=== PATIENT | female | born 1960 | race Caucasian/White ===

== ENCOUNTER 2019-03-05 08:57 | Inpatient (IN) | payer OTHER, SELFPAY ==
[2019-02-22 08:44] VITALS: BMI 29.9
[2019-03-05] VITALS (21 sets, daily range): BP systolic 81–125; BP diastolic 37–68; PULSE 60–79; RESP 13–19; TEMP 35.9–36.9; O2SAT 92–100; BMI 29.9
--- NOTE | 2019-03-05 09:13 | DI.RAD.S_ITS ---
PROCEDURE: XR KNEE RT 1TO2V INDICATIONS: Post operative total right knee TECHNIQUE: 2 view(s) of the knee acquired. COMPARISON: [facility], CR, XR KNEE STANDING BILATERAL, 09/26/2018, 8:19. [facility], CR, XR KNEE 3 VIEWS RIGHT, 09/19/2018, 17:30. FINDINGS: Bones: Patient is status post knee joint arthroplasty. Hardware components are in expected positions. Visualized bony structures are intact. Soft tissues: Overlying postoperative changes are noted. IMPRESSION: Right kidney prosthesis in anatomic alignment. Dictated by: Dylan Lauren M.D. on 03/05/2019 at 17:18 Approved by: Dylan Lauren M.D. on 03/05/2019 at 17:18
[2019-03-05] MEDS: CELECOXIB 200 MG CAPSULE PO (09:40)
[2019-03-05] MEDS: PREGABALIN 75 MG CAPSULE PO (09:40)
[2019-03-05] MEDS: ACETAMINOPHEN 325 MG TABLET 975 MG PO (09:40)
--- NOTE | 2019-03-05 11:19 | PM.PREOP ---
Pre-operative Note Interval Note History & Physical reviewed/Exam performed by Physician: Yes Changes to H&P: No
[2019-03-05] MEDS: CEFAZOLIN 2 GM/100 ML FROZ.PIGGY IV (12:00)
[2019-03-05] MEDS: TRANEXAMIC ACID 1,000 MG VIAL 1000 MG INJ ×2 (12:20→13:19)
[2019-03-05] MEDS: BUPIVACAINE 0.25% W/ EPI (PF) 10 ML VIAL 60 ML INJ (12:31)
[2019-03-05] MEDS: BUPIVACAINE LIPOSOME 266 MG/20 ML VIAL INJ (12:32)
[2019-03-05] MEDS: MORPHINE 4 MG/ML INJ INJ (12:33)
--- NOTE | 2019-03-05 12:47 | SUR.OPER ---
Supine on padded OR bed. Pillow under head, arms secured on padded armboards <90 degree abduction. Safety belt across torso. Non-operative leg secured with tape over blanket over lower leg. Operative leg secured in DeMayo positioner. Foam padded brace at thigh of operative leg.
[2019-03-05] MEDS: LACTATED RINGERS 1,000 ML 42 ML IV (13:56)
--- NOTE | 2019-03-05 13:59 | P.OP_ITS ---
Operative Date/Time/Diagnoses Date of procedure: 03/05/19 Time of procedure: 13:25 Pre-op diagnosis: Right knee osteoarthritis Post-op diagnosis: same Procedure & Clinicians Procedure: Right total knee Same procedure as scheduled: Yes Indications: The patient has had progressively worsening right knee pain with radiographic changes consistent with arthritis. Non-operative management has failed and the patient has requested total knee replacement. The risks, benefits and alternatives to surgery were discussed with the patient prior to proceeding. Risks discussed included, but were not limited to, failure to relieve pain, stiffness, infection, nerve damage, deep venous thrombosis, pulmonary embolism, stroke, coma, heart attack, permanent paralysis and , as well as the potential need for eventual revision of the prosthetic. Surgeon: Stanley Macias Dissolver Operator: Rufina Weber Click Yes if Unassisted: No Anesthesia Type: Spinal, Sedation and Local Operative Notes Findings: Severe medial and moderate patellofemoral osteoarthritis Closure Type: primary Specimen(s): none sent Prosthetic devices, grafts, tissues, transplants, or devices: Implants used in this procedure were manufactured by the [employer] and included the BCS II Journey total knee replacement with a size 4 right Oxinium femur, a size 3 right non porous tibial base plate with a 9 mm cross-linked polyethylene tibial insert and a 29 mm oval Laurie II patella. Applied: implant(s) Estimated Blood Loss (mL): 25 Blood products transfused: none Tourniquet time (min): 54 Procedure in detail: The patient was seen in the pre-operative area, where the patient identified the right knee as the operative site and this was marked with my initials. The patient received pre-operative antibiotics, and was taken to the operating room and placed on the operative table in the supine position. After satisfactory anesthesia, a grey stock recorder out was performed. The right leg was encircled with a tourniquet about the proximal thigh, and the leg was prepared from the toes to the tourniquet with ChloroPrep in the usual fashion and draped through sterile drapes. The leg was elevated and exsanguinated with Eschmark bandage and the tourniquet inflated to 250 mmHg pressure. The knee was approached through an approximately 18 cm incision centered over the patella and carried into the knee through a medial parapatellar arthrotomy. The anterior osteophytes and soft tissues were removed. The rotational landmarks of Crowley's line and the transepicondylar axis were marked on the femur with electrocautery, and intramedullary guide holes for the femur and tibia were created. The distal femoral cut was made in 6 degrees of valgus using the i ntramedullary guide at the primary cut setting. The proximal tibial cut was then made using the intramedullary guide, taking 9 mm of bone off the less involved side. The extension gap was checked and the rotation of the femoral component confirmed with the gap balancing system. The anterior, posterior and chamfer cuts were then made. The posterior osteophytes and soft tissues were then removed. The posterior capsule was injected with part of a mixture of 60 ml 0.25% Marcaine mixed with 20 ml Exparel and 4 mg of morphine for post-operative pain control. The remainder of this mixture was injected into the capsule and subcutaneous tissues during cement curing. The tibia was prepared with the rotation set by an extra medullary guide. Trial tibial and femoral components were then placed and the intercondylar notch cut through the femoral trial. Range of motion was 0-135 degrees, with good stability throughout the range. The patella was then cut to accommodate the patellar prosthetic. There was no need for a lateral release. The trials were then removed, and the femoral hole plugged with a bone plug. The bone was prepared with pulsatile lavage, and dried with a sponge. Cement was applied and the final prosthetics placed. Excess cement was removed during and after cement curing. After confirming there was no extruded cement posteriorly, the final tibial insert was placed. The knee was copiously irrigated and the tourniquet deflated. Hemostasis was obtained. The capsule was closed with interrupted # 2 polyester suture. The subcutaneous layer was closed with 3-0 Vicryl, and the skin with a running 3-0 V-Lock suture and SteriStrips. An Aquacel Ag dressing was applied and the patient was taken to recovery having tolerated the procedure well. Complications: none Post-operative Condition: stable Disposition: PACU Plan for aftercare: The patient will be maintained on a standard total knee replacement protocol with weight bearing as tolerated. The patient will receive aspirin and sequential compression devices for DVT prophylaxis. The patient will be discharged home when safe for the home environment.
--- NOTE | 2019-03-05 14:14 | SUR.PHASEI ---
Patient with Bp of 86/37 on arrival to PACU. Anesthesiology aware. IV fluids infusing without difficulty. Patient asymptomatic and remains supine in bed.
--- NOTE | 2019-03-05 14:35 | SUR.PHASEI ---
Ice chips given to patient.
--- NOTE | 2019-03-05 14:58 | SUR.PHASEI ---
1450 attempted to call report to receiving inpatient nurse. Nurse unable to take report at this time.
--- NOTE | 2019-03-05 15:04 | SUR.PHASEI ---
Patient continues to deny pain. Warm blanket provided. GCS 15. Resting comfortably.
[2019-03-05] MEDS: LACTATED RINGERS 1,000 ML 125 ML IV ×2 (15:30→23:24)
[2019-03-05] MEDS: ACETAMINOPHEN 325 MG TABLET 650 MG PO ×2 (16:12→20:37)
--- NOTE | 2019-03-05 16:40 | PT-IP ANOTE ---
PT orders received and chart reviewed. This therapist contacted the patient to initiate evaluation, but she was unable to move or feel her knee and toes, not yet able to safely participate with PT. Will attempt to see this patient as soon as possible morning of 03/06/19).
[2019-03-05] MEDS: METFORMIN HCL 500 MG TABLET 1000 MG PO (17:05)
[2019-03-05] MEDS: INSULIN ASPART 100 UNIT/ML INSULN PEN SUBCUT ×2 (17:13→20:32)
[2019-03-05] MEDS: LISINOPRIL 10 MG TABLET PO (18:19)
--- NOTE | 2019-03-05 18:43 | PC.NURSE ---
A&OX3. 099%RA. pt denied pain. dressing cdi. pt starting to feel sensation to her R.leg. able to lift and wiggle her toes. pt able to void 250cc. she tolerated her dinner. VSS. oriented pt to the room. call light in reach. bed alarm active.
[2019-03-05] MEDS: OXYCODONE IR 10 MG TABLET PO ×2 (19:37→22:41)
[2019-03-05] MEDS: ASPIRIN EC 81 MG TABLET PO (20:37)
[2019-03-05] MEDS: DOCUSATE 100 MG CAPSULE PO (20:37)
[2019-03-06] MEDS: hydrOXYzine pamoate 25 MG CAPSULE PO ×2 (00:31→21:10)
[2019-03-06] MEDS: IBUPROFEN 600 MG TABLET PO ×2 (00:31→21:10)
[2019-03-06] MEDS: OXYCODONE IR 10 MG TABLET PO ×6 (01:58→23:50)
[2019-03-06 05:33] VITALS: BP 100/50; PULSE 55; RESP 18; TEMP 36.7; O2SAT 99
[2019-03-06 05:48] LABS: Hematocrit 27.4 % (36-46); Hemoglobin 9.6 g/dL (12.0-16.0)
[2019-03-06 06:15] VITALS: BP 101/54
[2019-03-06 07:40] VITALS: BP 98/50; PULSE 49; RESP 16; TEMP 36.6; O2SAT 100
[2019-03-06] MEDS: METFORMIN HCL 500 MG TABLET 1000 MG PO ×2 (08:06→16:55)
[2019-03-06] MEDS: INSULIN ASPART 100 UNIT/ML INSULN PEN SUBCUT ×3 (08:06→16:54)
[2019-03-06] MEDS: DOCUSATE 100 MG CAPSULE PO ×2 (08:06→21:10)
[2019-03-06] MEDS: ASPIRIN EC 81 MG TABLET PO ×2 (08:07→21:10)
[2019-03-06] MEDS: ACETAMINOPHEN 325 MG TABLET 650 MG PO ×3 (08:07→21:10)
[2019-03-06] MEDS: SODIUM CHLORIDE 0.9% FLUSH 10 ML IV ×2 (08:09→21:12)
[2019-03-06] MEDS: ONDANSETRON 4 MG ODT PO (10:22)
--- NOTE | 2019-03-06 10:22 | PM.PNPO.1 ---
Subjective Subjective Date Patient Seen: 03/06/19 Time Patient Seen: 10:23 Interval history: The patient reports mild nausea and some lightheadedness. Pain control has been satisfactory. Exam Vital Signs (past 8 hours): - 03/06/19 05:33 03/06/19 06:15 03/06/19 07:40 Temperature 98.1 F 97.8 F Pulse Rate 55 L 49 L Respiratory Rate 18 16 Blood Pressure 100/50 L 101/54 L 98/50 L Pulse Oximetry 99 100 Oxygen Delivery Method Room Air Oxygen Flow Rate 0 Narrative Exam Narrative: Right knee wound is dressed with no drainage on the bandage. Calf is soft. Light touch and motion are intact in the right lower extremity. Objective Labs Result Diagrams: 03/06/19 05:30 Labs: Laboratory Results - last 24 hr 03/06/19 05:30 Hgb 9.6 L Hct 27.4 L Assessment & Plan Post-op Postoperative Procedures: Procedures Operation Date: 03/05/19 11:15 Actual Procedures Side Surgeon p Total Knee Arthroplasty Right Stanley Macias MD Postoperative day: 1 Postoperative status: doing well and anemia Postoperative status narrative: The patient is stable postoperative day 1. She has a mild post hemorrhagic anemia and some mild postoperative nausea. She has some mild hypotension and some lightheadedness but is taking oral fluid. Postoperative plan: routine post-op care, ambulate and advance diet Postoperative plan narrative: We will provide supportive care with adequate fluid intake and encourage slow increase in p.o. solid food as well. She will have physical therapy today. She has a disabled as a caregiver and will need to be fairly independent before discharge. I do not feel it is appropriate or safe to discharge her today. She may be ready for discharge tomorrow. Time Spent With Patient Time with patient: less than 15 minutes
--- NOTE | 2019-03-06 10:49 | PT.IPTN ---
Current Diagnoses Unilateral primary osteoarthritis, right knee (03/05/19) Surgery Performed Operation Date: 03/05/19 11:15 Actual Procedures p Total Knee Arthroplasty(Right) - Stanely Macias MD Physical Therapy Treatment Note M2 PT-IP Current Condition Start: 03/05/19 16:34 Freq: NEEDED Status: Active Protocol: Document 03/06/19 08:51 MB (Rec: 03/06/19 10:49 MB [id number]) Physical Therapy Current Condition Current Condition Evaluation Date 03/06/19 Treatment Diagnosis Decreased mobility, ROM and strength s/p right TKR Weight Bearing Status Weight Bearing Status Weight Bear as Tolerated M3 PT-IP Subjective Start: 03/05/19 16:34 Freq: NEEDED Status: Active Protocol: Document 03/06/19 08:51 MB (Rec: 03/06/19 10:49 MB [id number]) Subjective Physical Therapy Visit Type Type Initial Evaluation Visit Start Time 08:51 Visit Stop Time 09:17 Total Visit Minutes 26 Physical Therapy Visit Comments Patient Goals To go home Therapy Pain Assessment Pain When Pain Assessed During Mobility Pain Present Pain Present Pain Reported Location Right Knee Intensity 4 Scale Used Numeric (1 - 10) Pain Management Techniques Re-positioning M4 PT-IP Mobility and Gait Start: 03/05/19 16:34 Freq: NEEDED Status: Active Protocol: Document 03/06/19 08:51 MB (Rec: 03/06/19 10:49 MB [id number]) PT-Bed Mobility Assessment Supine to Sit Supine to Sit Minimal Assistance Sit to Supine Sit to Supine Minimal Assistance Scooting Scooting to Edge of Bed Minimal Assistance Scooting Up and Down in Bed Standby Assistance PT-Transfer Assessment Sit to and From Stand Sit to and from Stand Contact Guard Assistance Equipment Transfer Assistive Device Front Wheeled Walker Comments Mobility Comments Pt requires asst to manage right LE to get in and OOB. She is unable to use her UEs or left foot to help move her right leg. Gait belt unavailable to help with moving leg and PT communicates with nsg about need for gait belt in the room. Pt reports light-headedness upon sitting up and boyfriend, Mario, states that her BP has been low. BP sitting EOB in LUE: 118/53, 51 Cues to push up from the bed and commode and to reach back for them to move from sit<-> stand rather than reaching for walker Gait Assessment Gait Gait Assistance Required: Minimum Assistance Distance (Feet) 20 Assistive Devices Assistive Device 4 Wheeled Walker Gait Deviations General Gait Pattern Antalgic,Decreased Stride Length,Decreased Feet Clearance,Flexed Trunk,Step-to Gait Comments Gait Comments Pt gait trains 20'x1 and 5' x3 . 20' gait with her rollator and 5' gait trials with 2WRW in the room. She requires min A to improve safety and move walker, she presents with step -to gait pattern, decreased heel touch and keeps WB on her right toes. Pt on BR commode on PT arrival and she is able to perform hygiene with I. She asks to return to commode after PT and boyfriend nearby and PT communicates with nsg. PT-Balance Assessment Sitting Balance and Reactions Static Sitting Balance Ability Good Dynamic Sitting Balance Ability Good Standing Balance and Reactions Static Standing Balance Ability Fair Dynamic Standing Balance Ability Fair Device Used RW or rollator M5 PT-IP Objective Assessments Start: 03/05/19 16:34 Freq: NEEDED Status: Active Protocol: Document 03/06/19 08:51 MB (Rec: 03/06/19 10:49 MB [id number]) Orientation Orientation/Cognition Level of Alertness Alert Orientation Name,Age,Birthday,Month,Date, Year,Place,Situation Language Function Ability No Deficits Noted Safety Awareness Understands Safety Issues Gross Range of Motion Upper Extremity ROM Assessment Within Functional Limits Lower Extremity ROM Assessment Right Impaired Impairments AROM right knee in supine: 5- 20 deg and pt states that she cannot push her ROM any further Strength Upper Extremity Strength Assessment Within Functional Limits Lower Extremity Strength Assessment Right Impaired Hip NT s/p surgery Knee NT s/p surgery Ankle Ankle DF and great toe extension 5/5 Sensation Assessment Sensation Gross Sensation WNL M6 PT-IP Treatment Start: 03/05/19 16:34 Freq: NEEDED Status: Active Protocol: Document 03/06/19 08:51 MB (Rec: 03/06/19 10:49 MB [id number]) Physical Therapy Treatment Exercises Exercises Ankle Pumps,Gluteal Sets,Quad Sets,Heel Slides Knee ROM Measurement 5-20 deg Education Education Provided Weight Bearing Status,Post-Op Packet,Safety M7 PT-IP Assessment and Plan Start: 03/05/19 16:34 Freq: NEEDED Status: Active Protocol: Document 03/06/19 08:51 MB (Rec: 03/06/19 10:49 MB [id number]) PT Summary Assessment and Plan Potential Rehabilitation Potential Good Summary Impairments Pain,ROM,Strength,Balance,Bed Mobility,Transfers,Gait, Activity Tolerance Assessment Summary Pt is a 58 y/o female presenting with decreased right knee ROM and strength, R knee pain and decreased functional mobility and gait after right TKR last date. She has support from her boyfriend at home and has a rollator for use. She would like to use rollator at home rather than 2WRW. Boyfriend reports she has had low BP and PT checks it once pt reports dizziness upon sitting EOB and it is WNLs but could be dropping. Pt and boyfriend do not communicate BP issues until after mobility. She will benefit from PT and 24 hour asst at d/c. Ongoing PT in the acute setting to improve range, mobility and gait. Goals Bed Mobility Goal Independent Transfer Goal Independent,Front Wheeled Walker Gait Goal Independent,Front Wheel Walker Gait Distance 100 Other Goals Pt will present with improved active right knee ROM to at least 90 deg flexion. Pt will perform HEP with I to improve right knee ROM and strength. Days to Meet Goals 2 Frequency of Treatment Frequency Of Treatment Twice a Day Treatment Plan Physical Therapy Treatment Plan Bed Mobility Training,Transfer Training,Gait Training, Therapeutic Exercise,Balance Retraining,Post Op Education, Discharge Planning,Hot or Cold Pack Recommendations To Nursing Amount of Assist Needed 1 Person Assist Discharge Recommendations PT Discharge Recommendations Home with 26/09 Assist, Outpatient PT
[2019-03-06 11:58] VITALS: BP 93/53; PULSE 54; RESP 16; TEMP 36.4; O2SAT 99
--- NOTE | 2019-03-06 12:27 | CM.IDA ---
Discharge Planning/Care Management CM Discharge Assessment Start: 03/06/19 12:16 Freq: Status: Active Protocol: Document 03/06/19 12:16 SHREYAS (Rec: 03/06/19 12:26 SHREYAS [id number]) Discharge Planning Assessment Assigned Supervisor Front CARLITOS Almaraz DPOA/Assigned Designee Name Mario Wright, partner Contact Information [phone] Advance Directives? No History Provided By Patient,Significant Other Prior Living Arrangements House Household Members significant other Type of transporation used prior to Drives own vehicle admit Independent with ADL's Yes Is patient alert and oriented? Yes Barriers to Discharge No Comment Pt is POD 1 from right knee surgery w/ Dr Macias. PCP: Anastasia Astudillo Payer: [employer] Met w/pt and SO max at bedside this morning,explained role. Pt plans to DC home w/SO to assist as needed w/outpt PT f/ u. Pt states she is not feeling great this morning, nauseous and in pain but remains hopeful she will go home later today or tomorrow. No barriers identified today to safe return home as expected. PT recommending home . CARLITOS Escoto Discharge Plan Home Transportation Arrangement Family Referrals Initiated None needed Whiteboard Updated in Patient Room with Yes name and ext. # of Supervisor Front Review Status In Process
--- NOTE | 2019-03-06 12:52 | PC.NURSE ---
Pt had some issues with nausea earlier this shift. She did take oxycodone with only a couple bites of chips this am. Given zofran later and helpful. Pt eating lunch now, ate almost half of her sandwich and then given another 10mg of oxycodone. She seems to be feeling better now. Pt has an aquacel dressing to her r.knee that is cdi, She has full sensation to her r.extremity and is a one person assist with fww. at bedside and helpful.. Pt is lying in bed and eating. She is diabetic and her morning bs was 141. Given coverage.
--- NOTE | 2019-03-06 15:40 | PT.IPTN ---
Current Diagnoses Unilateral primary osteoarthritis, right knee (03/05/19) Surgery Performed Operation Date: 03/05/19 11:15 Actual Procedures p Total Knee Arthroplasty(Right) - Stanley Macias MD Physical Therapy Treatment Note M2 PT-IP Current Condition Start: 03/05/19 16:34 Freq: NEEDED Status: Active Protocol: Document 03/06/19 08:51 MB (Rec: 03/06/19 10:49 MB [id number]) Physical Therapy Current Condition Current Condition Evaluation Date 03/06/19 Treatment Diagnosis Decreased mobility, ROM and strength s/p right TKR Weight Bearing Status Weight Bearing Status Weight Bear as Tolerated M3 PT-IP Subjective Start: 03/05/19 16:34 Freq: NEEDED Status: Active Protocol: Document 03/06/19 14:55 SP (Rec: 03/06/19 16:18 SP [id number]) Subjective Physical Therapy Visit Type Type Treatment Note Visit Start Time 14:55 Visit Stop Time 15:40 Total Visit Minutes 45 Physical Therapy Visit Comments Patient Comments Pt willing to work with PT. Patient Goals To go home with assistance of her boyfriend, Mario. Therapy Pain Assessment Pain When Pain Assessed During Mobility Pain Present Pain Present Pain Reported Location Right Knee Intensity 4 Scale Used Numeric (1 - 10) Pain Management Techniques Apply Cold,Re-positioning, Timing of Activity with Medications M4 PT-IP Mobility and Gait Start: 03/05/19 16:34 Freq: NEEDED Status: Active Protocol: Document 03/06/19 14:55 SP (Rec: 03/06/19 16:18 SP [id number]) PT-Bed Mobility Assessment Sit to Supine Sit to Supine Contact Guard Assistance Scooting Scooting Up and Down in Bed Standby Assistance PT-Transfer Assessment Sit to and From Stand Sit to and from Stand Standby Assistance,Contact Guard Assistance,Use of Upper Extremities Equipment Transfer Assistive Device Front Wheeled Walker Orthotic/Prosthetic Devices or Brace: No Transfers Transfer Destination Bed,Toilet Transfer Technique pt ambulated with FWW, 4WW Comments Mobility Comments Pt was up in chair when arrived. ENROLLMENT MANAGER educated Mario lopez/ christina gait belt for safety durign mobility with proper technique. Pt was able to complete sit <> stand with cuing for hand placement to push up from chair and bathroom hand rails and reaching back before sitting from chair arms and reaching back for rail and bed CGA cues with use of 4WW and support provided by therapist initially then Max, her boyfriend during caregiver training. Did provide education on importance of brake management pre/post standing for safety with good follow through. Pt was able to perform self hygiene durign toileting. Pt was able to complete sitting to supine with LLE supporting operative RLE into bed and center herself away from EOB for safety. Pt was laying in bed wtih all needs within reach and Max in room when left. Gait Assessment Gait Gait Assistance Required: Contact Guard Assist Distance (Feet) 80 Able to Maintain Weight Bearing Status Yes During Gait Assistive Devices Assistive Device 4 Wheeled Walker Gait Deviations General Gait Pattern Antalgic,Decreased Stride Length,Decreased Feet Clearance,Flexed Trunk,Step-to Gait Factors Limiting Gait Function Factors Limiting Gait Function Decreased Activity Tolerance, Decreased Strength,Limited Range of Motion,Pain,Poor Balance Comments Gait Comments Pt was able to ambulate chair to toilet 7 ft using FWW CGA, bathroom to hallway and back to R side of bed approx 80 ft (side gets on at home). Pt used FWW initially then 4WW with good brake mgt demonstrating step to gait patterning, difficult step over step at this time. Cued for R knee flexion and heel toe gait to improved ROM and normal gait phases for ambulation. Pt was able to improve distance this treatment. Stair Climbing Assessment Comments Stair Climbing Comments Did not assess, does not have stairs at home. PT-Balance Assessment Sitting Balance and Reactions Static Sitting Balance Ability Good Dynamic Sitting Balance Ability Good Standing Balance and Reactions Static Standing Balance Ability Fair Dynamic Standing Balance Ability Fair Device Used RW or rollator M5 PT-IP Objective Assessments Start: 03/05/19 16:34 Freq: NEEDED Status: Active Protocol: Document 03/06/19 08:51 MB (Rec: 03/06/19 10:49 MB [id number]) Orientation Orientation/Cognition Level of Alertness Alert Orientation Name,Age,Birthday,Month,Date, Year,Place,Situation Language Function Ability No Deficits Noted Safety Awareness Understands Safety Issues Gross Range of Motion Upper Extremity ROM Assessment Within Functional Limits Lower Extremity ROM Assessment Right Impaired Impairments AROM right knee in supine: 5- 20 deg and pt states that she cannot push her ROM any further Strength Upper Extremity Strength Assessment Within Functional Limits Lower Extremity Strength Assessment Right Impaired Hip NT s/p surgery Knee NT s/p surgery Ankle Ankle DF and great toe extension 5/5 Sensation Assessment Sensation Gross Sensation WNL M6 PT-IP Treatment Start: 03/05/19 16:34 Freq: NEEDED Status: Active Protocol: Document 03/06/19 14:55 SP (Rec: 03/06/19 16:18 SP [id number]) Physical Therapy Treatment Exercises Exercises Ankle Pumps,Gluteal Sets,Quad Sets,Heel Slides Knee ROM Measurement 4-90 deg Education Education Provided Weight Bearing Status,Post-Op Packet,Safety M7 PT-IP Assessment and Plan Start: 03/05/19 16:34 Freq: NEEDED Status: Active Protocol: Document 03/06/19 14:55 SP (Rec: 03/06/19 16:18 SP [id number]) PT Summary Assessment and Plan Potential Rehabilitation Potential Good Status of Condition at Evaluation Evolving Summary Impairments Pain,ROM,Strength,Balance,Bed Mobility,Transfers,Gait, Activity Tolerance Assessment Summary Pt required CGA throughout mobility using FWW intially then 4WW (updated room board). Pt was able to improve AAROM knee flexion during HEP review . She will benefit from PT and 24 hour asst at d/c. Continue one more tx of PT in the acute setting to improve range and independence of post op HEP, mobility and gait. Pt and boyfriend completed caregiver training including bedmobility, transfers and gait. Goals Bed Mobility Goal Independent Transfer Goal Independent,Front Wheeled Walker Gait Goal Independent,Front Wheel Walker Gait Distance 100 Other Goals Pt will present with improved active right knee ROM to at least 90 deg flexion. Pt will perform HEP with I to improve right knee ROM and strength. Days to Meet Goals 2 Frequency of Treatment Frequency Of Treatment Twice a Day Treatment Plan Physical Therapy Treatment Plan Bed Mobility Training,Transfer Training,Gait Training, Therapeutic Exercise,Balance Retraining,Post Op Education, Discharge Planning,Hot or Cold Pack Recommendations To Nursing Amount of Assist Needed 1 Person Assist Discharge Recommendations PT Discharge Recommendations Home with 26/09 Assist, Outpatient PT
[2019-03-06 15:49] VITALS: BP 124/54; PULSE 53; RESP 18; TEMP 36.1; O2SAT 99
[2019-03-06] MEDS: LISINOPRIL 10 MG TABLET PO (16:54)
[2019-03-06 20:14] VITALS: BP 98/56; PULSE 55; RESP 18; TEMP 36.4; O2SAT 99
[2019-03-07 00:35] VITALS: BP 122/47; PULSE 63; RESP 18; TEMP 37.2; O2SAT 97
--- NOTE | 2019-03-07 04:49 | PC.NURSE ---
Shift note: At time of assessment, patient reporting 8/10 pain, in distress reporting that she'd tried to go without pain medication to see if I could. Medicated patient per MAR for pain, repositioned patient several times in attempt to find a position that allowed her to achieve some relief. At time of reassessment, patient reporting 6/10 pain and requested repositioning again. Patient appeared to be in less physical distress at this time. Patient now appears to be resting comfortably. Educated patient at start of shift about pain management and need to keep pain at a tolerable level as she was POD #1 and pain is to be expected. Patient acknowledge teaching.
[2019-03-07 06:10] VITALS: BP 119/51; PULSE 68; RESP 16; TEMP 36.7; O2SAT 96
--- NOTE | 2019-03-07 07:47 | P.DS_ITS ---
History of Present Illness History of Present Illness Date Patient Seen: 03/07/19 Time Patient Seen: 07:47 Chief complaint: [id number] Right Total Knee Arthroplasty Narrative: Please see HPI previously recorded in chart. Discharge Providers Provider Date of admission: 03/05/19 08:57 Discharge Date: 03/07/19 Primary care physician: Anastasia Astudillo PA-C Consults: 03/05/19 15:21 Consult to Discharge Planning Routine Comment: Consult to Physical Therapy Evaluate & Treat Comment: Physician Instructions: postop TKA protocol Discharge provider: Rufina Weber PA-C Summary Hospital Course Discharge Diagnosis: s/p right total knee replacement Hospital Course: The patient is a 58 year old female who has had progressively worsening right knee pain with radiographic changes consistent with arthritis. Non-operative management has failed and the patient has requested total knee replacement. The risks, benefits and alternatives to surgery were discussed with the patient prior to proceeding. Risks discussed included, but were not limited to, failure to relieve pain, stiffness, infection, nerve damage, deep venous thrombosis, pulmonary embolism, stroke, coma, heart attack, permanent paralysis and , as well as the potential need for eventual revision of the prosthetic. After obtaining informed consent the patient was taken to the operating room where she underwent a right total knee replacement with Dr. Macias which she tolerated well without complications. Once transferred to the acute care floor she has progressed well post operatively. Initially hypotensive POD#1, her PO intake improved and blood pressure has returned to normal. Complaints on nausea and lightheadedness have resolved. She has mobilized well with physical therapy. Pain has been well controlled with Oxycodone. She was given prescriptions for her post operative meds previously and states she has all of those filled at home. Continue ASA for DVT prophylaxis. At this point she is medically stable for discharge to home later today. Status at Discharge Cognitive/behavioral status at discharge: oriented Functional status at discharge: uses cane/walker Overall status at discharge: patient is progressing back to baseline Exam Vital Signs (past 8 hours): - 03/07/19 00:35 03/07/19 06:10 Temperature 98.9 F 98.0 F Pulse Rate 63 68 Respiratory Rate 18 16 Blood Pressure 122/47 L 119/51 L Pulse Oximetry 97 96 Oxygen Delivery Method Room Air Oxygen Flow Rate 0 Narrative Exam Narrative: 58 year old female resting comfortably in bed. Alert and orient ed in no acute distress. Aquacel dressing on right knee is CDI. Patient able to fire foot flexors/ex tensors. Calf is soft and compressible. Did note some tingling in the extremity which improved with removal of JACQUES wrap. Objective Labs Result Diagrams: 03/06/19 05:30 Discharge Plan Discharge Plan Patient Disposition: Home Discharge orders & Medications Prescriptions: New acetaminophen 325 mg Tablet 650 mg PO TID Qty: 40 RF: 0 aspirin 81 mg Tablet,Delayed Release (Dr/Ec) 81 mg PO BID Qty: 40 RF: 0 docusate sodium [DOK] 100 mg Capsule 100 mg PO BID Qty: 40 RF: 0 hydroxyzine pamoate 25 mg Capsule 25 mg PO Q6HR PRN (Reason: Nausea) Qty: 40 RF: 0 oxycodone 10 mg Tablet 10 mg PO Q3HR PRN (Reason: Pain, Severe (7-10)) Qty: 1 RF: 0 Continued metformin 500 mg Tablet 1,000 mg PO BID RF: 0 lisinopril 10 mg Tablet 10 mg PO QPM RF: 0 ibuprofen 200 mg Tablet 400 - 600 mg PO Q6H PRN (Reason: Pain) RF: 0 minocycline 50 mg Tablet 50 mg PO QPM RF: 0 Follow up/Referrals: Anastasia Astudillo PA-C [Primary Care Provider] - Diet/Activity/Treatments Diet: Diet as Tolerated Activity: Weight bear as tolerated. Please use front wheel walker for support. Cold/Heat Therapy: Ice packs as needed. Other treatments: Follow [employer] guide. Skin/Wound/Dressing Care Report to your healthcare provider any signs of infection, such as:: chills, fever, night sweats, unusual drainage and unusual redness Dressing: Leave Aquacel dressing in place, this will be removed at 2 week post operative visit. If the dressing becomes saturated please call the office. Visit Report/Discharge Packet Instructions: DI for Knee Replacement Discharge Data Primary Care Provider: Anastasia Astudillo
[2019-03-07 08:00] VITALS: BP 128/75; PULSE 117; RESP 17; TEMP 36.6; O2SAT 96
[2019-03-07] MEDS: DOCUSATE 100 MG CAPSULE PO (08:18)
[2019-03-07] MEDS: METFORMIN HCL 500 MG TABLET 1000 MG PO (08:18)
[2019-03-07] MEDS: OXYCODONE IR 5 MG TABLET PO ×2 (08:18→11:41)
[2019-03-07] MEDS: ASPIRIN EC 81 MG TABLET PO (08:18)
[2019-03-07] MEDS: ACETAMINOPHEN 325 MG TABLET 650 MG PO (08:19)
[2019-03-07] MEDS: SODIUM CHLORIDE 0.9% FLUSH 10 ML IV (08:20)
--- NOTE | 2019-03-07 10:50 | PT.IPTN ---
Current Diagnoses Unilateral primary osteoarthritis, right knee (03/05/19) Surgery Performed Operation Date: 03/05/19 11:15 Actual Procedures p Total Knee Arthroplasty(Right) - Stanley Macias MD Physical Therapy Treatment Note M2 PT-IP Current Condition Start: 03/05/19 16:34 Freq: NEEDED Status: Active Protocol: Document 03/06/19 08:51 MB (Rec: 03/06/19 10:49 MB [id number]) Physical Therapy Current Condition Current Condition Evaluation Date 03/06/19 Treatment Diagnosis Decreased mobility, ROM and strength s/p right TKR Weight Bearing Status Weight Bearing Status Weight Bear as Tolerated M3 PT-IP Subjective Start: 03/05/19 16:34 Freq: NEEDED Status: Active Protocol: Document 03/07/19 10:01 SP (Rec: 03/07/19 11:20 SP [id number]) Subjective Physical Therapy Visit Type Type Treatment Note Visit Start Time 10:01 Visit Stop Time 10:50 Total Visit Minutes 49 Physical Therapy Visit Comments Patient Comments Pt willing to work with PT. Patient Goals To go home today with assistance of her boyfriend, Mario. Therapy Pain Assessment Pain When Pain Assessed During Mobility Pain Present Pain Present Pain Reported Location Right Knee Intensity 6 Scale Used 2/10 at rest, 6/10 during mobility Description Burning,Throbbing,With Movement Pain Management Techniques Apply Cold,Re-positioning, Timing of Activity with Medications M4 PT-IP Mobility and Gait Start: 03/05/19 16:34 Freq: NEEDED Status: Active Protocol: Document 03/07/19 10:01 SP (Rec: 03/07/19 11:20 SP [id number]) PT-Bed Mobility Assessment Supine to Sit Supine to Sit Contact Guard Assistance Sit to Supine Sit to Supine Standby Assistance Scooting Scooting to Edge of Bed Standby Assistance PT-Transfer Assessment Sit to and From Stand Sit to and from Stand Standby Assistance,Use of Upper Extremities Equipment Transfer Assistive Device 4 Wheeled Walker Orthotic/Prosthetic Devices or Brace: No Transfers Transfer Destination Bed,Chair,Toilet Transfer Technique step pivot, ambulated 4WW Comments Mobility Comments Pt was up in the chair BLE elevated pillow and foot rest when arrived. Pt was able to complete sit to stand SBA using BUE to push up from arms rests of chair/ bathroom rail and reaching back prior to sitting during toileting and from chair, EOB and 4WW demonstrating good 4WW brake mgt consistantly for safety. Pt was able demonstrated good standing balance during self hygiene during toileting. Gait Assessment Gait Gait Assistance Required: Contact Guard Assist Distance (Feet) 100 Able to Maintain Weight Bearing Status Yes During Gait Assistive Devices Assistive Device 4 Wheeled Walker Orthotic/Prosthetic Devices or Brace: No Gait Deviations General Gait Pattern Antalgic,Decreased Stride Length,Decreased Feet Clearance,Step-to Gait Factors Limiting Gait Function Factors Limiting Gait Function Decreased Activity Tolerance, Decreased Strength,Limited Range of Motion,Pain Comments Gait Comments Pt was able to ambulate chair out into hallway further distance and back to the bathroom approx 100 ft and room distance SBA provided by arthur. SANDBLASTER GLASS provided continued education on knee flexion and heel toe gait with shorter stride RLE and increased stride LLE to allow for goal of normal gait patterning phases and ROM of R knee with improvement in step over step patterning. Pt stated I can feel my calf good work burn and though moving better. Stair Climbing Assessment Comments Stair Climbing Comments Did not assess, does not have stairs at home. PT-Balance Assessment Sitting Balance and Reactions Static Sitting Balance Ability Good Dynamic Sitting Balance Ability Good Standing Balance and Reactions Static Standing Balance Ability Good Dynamic Standing Balance Ability Good Device Used 4WW/ rollator Functional Assessments Other Functional Tests Performed Pt was able to complete 5 sit to stands from seated on 4WW with use of BUE to grade pacing and educated on trying to bring R foot back range as tolerated to improve R knee flexion ROM with improvement approx 80 deg. M5 PT-IP Objective Assessments Start: 03/05/19 16:34 Freq: NEEDED Status: Active Protocol: Document 03/06/19 08:51 MB (Rec: 03/06/19 10:49 MB [id number]) Orientation Orientation/Cognition Level of Alertness Alert Orientation Name,Age,Birthday,Month,Date, Year,Place,Situation Language Function Ability No Deficits Noted Safety Awareness Understands Safety Issues Gross Range of Motion Upper Extremity ROM Assessment Within Functional Limits Lower Extremity ROM Assessment Right Impaired Impairments AROM right knee in supine: 5- 20 deg and pt states that she cannot push her ROM any further Strength Upper Extremity Strength Assessment Within Functional Limits Lower Extremity Strength Assessment Right Impaired Hip NT s/p surgery Knee NT s/p surgery Ankle Ankle DF and great toe extension 5/5 Sensation Assessment Sensation Gross Sensation WNL M6 PT-IP Treatment Start: 03/05/19 16:34 Freq: NEEDED Status: Active Protocol: Document 03/07/19 10:01 SP (Rec: 03/07/19 11:20 SP [id number]) Physical Therapy Treatment Exercises Exercises Ankle Pumps,Gluteal Sets,Quad Sets,Heel Slides,Supine Hip Abduction,Passive Knee Extension Hang,Seated Knee Flexion/Extension Knee ROM Measurement 4-80 deg Education Education Provided Weight Bearing Status,Post-Op Packet,Safety Other Treatments Other Treatment Performed Instructed and performed standing R knee flexion A- AAROM to encourage ROM during gait swing phase and wt shifting between BLE parallel and split stance with cuing for quad facilitation to decrease flexed positioning and noted improvement during gait. M7 PT-IP Assessment and Plan Start: 03/05/19 16:34 Freq: NEEDED Status: Active Protocol: Document 03/07/19 10:01 SP (Rec: 03/07/19 11:20 SP [id number]) PT Summary Assessment and Plan Potential Rehabilitation Potential Good Status of Condition at Evaluation Evolving Summary Impairments Pain,ROM,Strength,Balance,Bed Mobility,Transfers,Gait, Activity Tolerance Assessment Summary Pt required SBA during all mobility. Pt was able to improve AAROM knee flexion from beginning of tx to end today during HEP review seated , supine and the most improvement during repetitive sit to stands and repositioning foot posteriorly . Patient is able to go home with suport of her boyfriend, Max when medically stable. She would benefit from skilled outpatient PT to work on strength, ROM to improve functional mobility. Encouraged patient to do ROM exercises and walk about every hour. Pt was up in chair with R knee supported by room cushion into extension and abililty to put her feet down for AROM, all needs within reach, boyfriend in room when left. Goals Bed Mobility Goal Independent Transfer Goal Independent,Front Wheeled Walker Gait Goal Independent,Front Wheel Walker Gait Distance 100 Other Goals Pt will present with improved active right knee ROM to at least 90 deg flexion. Pt will perform HEP with I to improve right knee ROM and strength. Days to Meet Goals 2 Frequency of Treatment Frequency Of Treatment Twice a Day Treatment Plan Physical Therapy Treatment Plan Bed Mobility Training,Transfer Training,Gait Training, Therapeutic Exercise,Balance Retraining,Post Op Education, Discharge Planning,Hot or Cold Pack Recommendations To Nursing Amount of Assist Needed 1 Person Assist Discharge Recommendations PT Discharge Recommendations Home with 26/09 Assist, Outpatient PT
--- NOTE | 2019-03-07 11:47 | PC.NURSE ---
Patient declined to stay for lunch, would like to get home. Discharge instructions reviewed with patient and her boyfriend, IV dc'd intact, and she states understanding and has no further questions or concerns at this time. Aquacel remains in place without drainage or bleeding noted. Patient has follow up appointment scheduled and prescriptions already filled and at home. Patient escorted out via wheelchair with all belongings by RECONCILIATION ANALYST to be discharged to home with her walker and her boyfriend. Instructed to call surgeon's office with questions or concerns, or seek immediate/ emergency care for emergency.
== END 2019-03-07 11:51 | disposition home or self-care (01) | DRG 470 ==
PROVIDERS: Admitting Provider Orthopaedic Surgery; PCP Physician Assistant; Visit Provider Orthopaedic Surgery
PROC: 0SRC0JZ Replacement of Right Knee Joint with Synthetic Substitute, Open Approach (ICD-10-PCS; CPT 27447; principal; 2019-03-05 11:15)
DX: M17.11 Unilateral primary osteoarthritis, right knee (principal); E11.9 Type 2 diabetes mellitus without complications; F41.8 Other specified anxiety disorders; F17.210 Nicotine dependence, cigarettes, uncomplicated; I10 Essential (primary) hypertension; Z79.84 Long term (current) use of oral hypoglycemic drugs
CPT/HCPCS: 36415; 73560; 82962; 85014; 85018; 97110; 97116; 97161; 97530; C1776; C9290; J0690; J1100; J2250; J2270; J2405; J2704; J3010